=== PATIENT | male | born 1950 | race Hispanic/Latino ===

== ENCOUNTER 2022-02-18 19:25 | Emergency (ER) | payer OTHER ==
[~2022-02-18] VITALS: Ht 167.6 cm; Wt 79.4 kg
[2022-02-18] MEDS ORDERED: SULF1TAB42 PO (20:05)
[2022-02-18 20:07] VITALS: BP 153/76
== END 2022-02-18 20:11 | disposition home or self-care (01) ==
LOC: EDH 19:25
DX: L03.113 Cellulitis of right upper limb (principal); I10 Essential (primary) hypertension